=== PATIENT | male | born 1980 | race American Indian/Alaskan Native ===

== ENCOUNTER 2019-07-24 07:40 | Emergency (ER) | payer OTHER ==
[2019-07-24 08:04] VITALS: BP 142/94
--- NOTE | 2019-07-24 12:40 | Emergency Department Report ---
Chief Complaint: Upper Respiratory Infection Stated Complaint: CHEST PAIN/SWEATS/HEADACHE Time Seen by Provider: 07/24/19 12:34 - HPI History of Present Illness: 38-year-old -Filipino male presents to the emergency room for 12 hour history of chest congestion chills and body aches with the cough. Patient has no fever. Patient denies any past medical history currently takes no medications on a daily basis has no known drug allergies. Patient is taking nothing for his symptoms. - Exam Vital Signs: Vital Signs 07/24/19 07/24/19 07/24/19 07:54 08:03 12:29 Temperature 97.7 F Pulse Rate 87 78 Respiratory 18 Rate Blood Pressure 142/94 [Right] O2 Sat by Pulse 98 98 Oximetry Physical Exam: alert 3 no acute distress nontoxic in appearance Clear to auscultation bilateral Cardiac regular rate and rhythm on tachycardic Normal bowel sounds nontender to palpate no guarding ambulatory without difficulties MSE screening note: Focused history and physical exam performed. Due to findings the following was ordered: [place] [facility] [place] SCREENING EXAM-LEFT Is pt being admited?: No Does the pt Need Aspirin: No Condition: Stable Instructions: Viral Syndrome (ED) Additional Instructions: Increase her fluid intake advance her diet as tolerated Tylenol or ibuprofen [id number] Robitussin and Claritin. Follow up with the primary care provider if his symptoms persist or gets worse Referrals: PRIMARY CARE, [Primary Care Provider] - 3-5 Days Forms: Work/School Release Form(ED)
== END 2019-07-24 12:54 | disposition left against medical advice (07) ==
LOC: ED 07:40
DX: R05 Cough (principal); R09.81 Nasal congestion
CPT/HCPCS: 99281

== ENCOUNTER 2021-12-04 09:46 | Emergency (ER) | payer BC, OTHER ==
--- NOTE | 2021-12-04 18:33 | XRay Report ---
XR chest 1V ap INDICATION / CLINICAL INFORMATION: cough and congestion. COMPARISON: None available. FINDINGS: SUPPORT DEVICES: None. HEART /PULMONARY VASCULATURE: No significant abnormality. LUNGS / PLEURA: No significant pulmonary or pleural abnormality. No pneumothorax. ADDITIONAL FINDINGS: No significant additional findings. IMPRESSION: 1. No acute findings. Signer Name: Angel Malagon MD Signed: 12/04/2021 6:28 PM Workstation Name: [id number]
[2021-12-04 19:43] LABS: Basophils % (Auto) 0.6 % (0.0-1.8); Eosinophils % (Auto) 0.3 % (0.0-4.3); Hematocrit 40.5 % (35.5-45.6); Hemoglobin 13.5 gm/dl (11.8-15.2); Lymphocytes % (Auto) 18.4 % (13.4-35.0); Mean Corpuscular HGB Conc 33 % (32-34); Mean Corpuscular Volume 94 fl (84-94); Monocytes # (Auto) 0.6 K/mm3 (0.0-0.8); Monocytes % (Auto) 10.2 % (0.0-7.3); Platelet Count 297 K/mm3 (140-440); Red Cell Distribution Width 12.3 % (13.2-15.2)
[2021-12-04 19:45] LABS: BUN/Creatinine Ratio 8; Blood Urea Nitrogen 9 mg/dL (9-20); Calcium 9.3 mg/dL (8.4-10.2); Hemolysis Index 7
--- NOTE | 2021-12-04 20:06 | Emergency Department Report ---
ED General Adult HPI - General Chief complaint: Weakness Stated complaint: HEADACHE/THROAT/FEVER Time Seen by Provider: 12/04/21 18:11 Source: patient Mode of arrival: Ambulatory Limitations: No Limitations - History of Present Illness Initial comments: Patient is a 41-year-old male presenting to ED with complaint of chest congestion, headache and malaise beginning yesterday. - Related Data Allergies Allergy/AdvReac Type Severity Reaction Status Date / Time No Known Allergies Allergy Unverified 07/24/19 07:53 ED Review of Systems ROS: Stated complaint: HEADACHE/THROAT/FEVER Other details as noted in HPI Comment: All other systems reviewed and negative Constitutional: denies: chills, fever ENT: congestion Respiratory: denies: cough, shortness of breath, wheezing Cardiovascular: denies: chest pain, palpitations Gastrointestinal: denies: abdominal pain, nausea, diarrhea Musculoskeletal: denies: back pain, joint swelling, arthralgia Skin: denies: rash, lesions Neurological: headache Psychiatric: denies: anxiety, depression ED Physical Exam - General Limitations: No Limitations General appearance: alert, in no apparent distress - Head Head exam: Present: atraumatic, normocephalic - Eye Eye exam: Present: normal appearance - Respiratory Respiratory exam: Present: normal lung sounds bilaterally. Absent: respiratory distress - Cardiovascular Cardiovascular Exam: Present: regular rate, normal rhythm. Absent: systolic murmur, diastolic murmur, rubs, gallop - GI/Abdominal GI/Abdominal exam: Present: soft. Absent: distended, tenderness - Neurological Exam Neurological exam: Present: alert, oriented X3 - Psychiatric Psychiatric exam: Present: normal affect, normal mood - Skin Skin exam: Present: warm, dry, intact, normal color ED Course Vital Signs 12/04/21 10:07 Temperature 97.9 F Pulse Rate 80 Respiratory 16 Rate Blood Pressure 130/82 [Left] O2 Sat by Pulse 99 Oximetry ED Medical Decision Making - Lab Data Result diagrams: 12/04/21 19:12 12/04/21 19:12 - Medical Decision Making Chest x-ray is normal. CBC and CMP unremarkable. I discussed results with the patient. He is stable for discharge home with PCP follow-up as needed. Critical care attestation.: If time is entered above; I have spent that time in minutes in the direct care of this critically ill patient, excluding procedure time. ED Disposition Clinical Impression: Congestion of respiratory tract, Headache Disposition: 01 HOME / SELF CARE / HOMELESS Is pt being admited?: No Condition: Stable Instructions: Tension Headache, Adult, [id number], Viral Illness, Adult Time of Disposition: 20:05
[2021-12-04 21:15] VITALS: BP 132/84
== END 2021-12-04 21:15 | disposition home or self-care (01) ==
LOC: ED 09:46
DX: J06.9 Acute upper respiratory infection, unspecified (principal); R51.9 Headache, unspecified
CPT/HCPCS: 36415; 71045; 80048; 85025; 99283